=== PATIENT | female | born 1975 | race Two or more races ===

== ENCOUNTER 2016-06-11 08:21 | Outpatient (CLI) ==
[2015-06-18 18:02] VITALS: BMI 39.6
[2016-06-11 09:05] LABS: BASOPHILS # (AUTO) 0.1 K/uL (0-0.2); BASOPHILS % (AUTO) 0.4 % (0.0-3.0); EOSINOPHILS # (AUTO) 0.1 K/ul (0.0-0.7); EOSINOPHILS % (AUTO) 0.9 % (0.0-7.0); HEMATOCRIT 39.5 % (37.0-47.0); HEMOGLOBIN 13.4 g/dl (12.0-16.0); IMMATURE GRANULOCYTE % (AUTO) 0.4 % (0.0-5.0); LYMPHOCYTES # (AUTO) 1.4 K/uL (0.60-3.4); MEAN CORPUSCULAR HEMOGLOBIN 29.2 pg (27.0-31.0); MEAN CORPUSCULAR HGB CONC 33.9 (31.8-35.4); MEAN CORPUSCULAR VOLUME 86.1 fl (81.0-99.0); MONOCYTES # (AUTO) 0.6 K/uL (0.4-2.0); NEUTROPHILS # (AUTO) 10.5 K/ul (2.0-6.9); NEUTROPHILS % (AUTO) 82.3; PLATELET COUNT 279 10^3/uL (140-440); RED BLOOD COUNT 4.59 10^6/ul (4.20-5.40)
--- NOTE | 2016-06-11 09:41 | DI ---
Examination: Two radiographic images of the right hip. Comparison: CT imaging of the abdomen pelvis performed on 06/18/2015. Reason for study: Sacral ileitis. FINDINGS: No acute fracture or dislocation. The joint spaces well maintained. The femoral head ar ticulates with the bony acetabula. No abnormal findings are seen within the right sacroiliac joint or symphysis pubis. Impression: No acute fracture or dislocation in the right hip.
[2016-06-11 09:54] LABS: ANION GAP 17.4; BLOOD UREA NITROGEN 14 mg/dL (7-18); BUN/CREATININE RATIO 16.86; CALCIUM 8.3 mg/dL (8.2-10.2); CARBON DIOXIDE 20 mmol/L (21-32); CHLORIDE 108 mmol/L (98-107); CHOL/HDL RATIO 4.8 (4.5-5.5); CHOLESTEROL 229 mg/dL (0-200); CREATININE 0.83 mg/dL (0.60-1.30); GLUCOSE 116 mg/dL (70-110); HDL CHOLESTEROL 48 mg/dL (35-80); POTASSIUM 4.4 mmol/L (3.5-5.10); SODIUM 141 mmol/L (136-145); TRIGLYCERIDES 102 mg/dL (30-150); VLDL CHOLESTEROL 20 mg/dL (2-30)
--- NOTE | 2016-06-11 10:19 | DI ---
EXAM: Left hip, views, 06/11/2016 HISTORY: Sacroiliitis COMPARISON: 06/18/2015 FINDINGS / IMPRESSION: The left hip aligns normally. Mild chronic osteoarthritic degenerative laird ge. Osteophyte formation at the superior aspect of the acetabulum. The joint space is grossly preserved. No acute osseous abnormality.
== END 2016-06-11 08:22 | disposition home or self-care (01) ==
LOC: LAB 08:21
PROVIDERS: ATTEND Pain Medicine Interventional Pain Medicine
DX: M46.1 Sacroiliitis, not elsewhere classified (principal); E03.9 Hypothyroidism, unspecified; R73.9 Hyperglycemia, unspecified; E78.5 Hyperlipidemia, unspecified
CPT/HCPCS: 36415; 80048; 80061; 83036; 84436; 84443; 85025

== ENCOUNTER 2016-08-02 07:58 | Outpatient (CLI) ==
[2015-06-18 18:02] VITALS: BMI 39.6
--- NOTE | 2016-08-02 09:05 | DI ---
EXAM: Four views of the left knee. History: Left knee pain. Findings: No acute fracture or dislocation. No abnormal calcifications or radiopaque foreign shanda s. Joint spaces are relatively preserved. Impression: Unremarkable exam.
== END 2016-08-02 07:59 | disposition home or self-care (01) ==
LOC: RAD 07:58
PROVIDERS: ATTEND Pain Medicine Interventional Pain Medicine
DX: M17.12 Unilateral primary osteoarthritis, left knee (principal)

== ENCOUNTER 2016-11-09 12:08 | Emergency (ER) ==
[2016-11-09 12:19] VITALS: BP 141/98; TEMP 98; BMI 40.6
--- NOTE | 2016-11-09 12:24 | ED.PDOC ---
General ED Provider: Dr. WILBERTO QUINONES JR Chief Complaint: Weakness Stated Complaint: "i think its my thyroid"--states without meds past month-- unable to see md--did fine first 2 weeks but now has weakness and has had syncopal episodes--states appetite increased--[End]98.0 90 20 95% 141/98 710 pain management for lower back pain-- had fall last pm--states woke up on floor- - headache[End]. Thyroidectomy and gall bladder[End] Time Seen by Physician: 12:23 Mode of Arrival: Walk-In Information Source: Patient Exam Limitations: No limitations Primary Care Provider: CASI SPANGLER Nursing and Triage Documentation Reviewed and Agree: No Review of Systems - Review Of Systems Constitutional: Reports: Malaise, Weakness Eyes: Reports: No symptoms Ears, Nose, Mouth, Throat: Reports: No symptoms Cardiac: Reports: No symptoms GI: Reports: No symptoms : Reports: No symptoms Musculoskeletal: Reports: No symptoms Skin: Reports: No symptoms Neurological: Reports: Headache, Weakness (DIZZINESS) Endocrine: Reports: Unexplained weight gain Hematologic/Lymphatic: Reports: Other All Other Systems: Other Past Medical History - Past Medical History Endocrine: Reports: Hypothyroid, Dyslipidemia, Other (thyroidectomy for cancer at 17 years old) Cardiovascular: Reports: Hypertension Respiratory: Reports: None Hematological: Reports: None Gastrointestinal: Reports: None Genitourinary: Reports: Other (Polycystic Ovarian Disease. ) Neuro/Psych: Reports: None Musculoskeletal: Reports: Arthritis Cancer: Reports: None Last Menstrual Period: today Other Pertinent Past Medical History: psoriasis, POLYCYSTIC OVARIAN - Surgical History General Surgical History: Reports: Cholecystectomy, Other (Throidectomy ) - Family History Family History: Reports: Unknown - Social History Smoking Status: Current some day smoker, Light tobacco smoker Hx Substance Use: No Alcohol Screening: None Physical Exam - Physical Exam Appearance: Well-appearing, Obese Pain Distress: Moderate Eyes: MELVIN, EOMI, Conjunctiva clear ENT: Ears normal, Nose normal, Oropharynx normal Neck: Supple Respiratory: Airway patent, Breath sounds clear, Breath sounds equal, Respirations nonlabored Cardiovascular: RRR, Pulses normal, No rub, No murmur GI/: Soft, Nontender, No masses, Bowel sounds normal, No Organomegaly Musculoskeletal: Normal strength, ROM intact, No edema, No calf tenderness Skin: Warm, Dry, Normal color Neurological: Sensation intact, Motor intact, Reflexes intact, Cranial nerves intact, Alert, Oriented Psychiatric: Affect appropriate, Mood appropriate Critical Care Note - Critical Care Note Total Time (mins): 0 Course - Course Hematology/Chemistry: 11/09/16 12:35 11/09/16 12:35 Orders, Labs, Meds: Lab Review 11/09/16 12:35 WBC 9.90 RBC 4.49 Hgb 12.9 Hct 39.6 MCV 88.2 MCH 28.7 MCHC 32.6 RDW Coeff of Mo 15.7 H Plt Count 259 Immature Gran % (Auto) 0.4 Neut % (Auto) 61.8 Lymph % (Auto) 26.4 [place] % (Auto) 6.5 Eos % (Auto) 4.0 Baso % (Auto) 0.9 Immature Gran # (Auto) 0.0 Neut # 6.1 Lymph # 2.6 [place] # 0.6 Eos # 0.4 Baso # 0.1 Sodium 143 Potassium 3.9 Chloride 105 Carbon Dioxide 25 Anion Gap 16.9 BUN 13 Creatinine 1.08 Estimated GFR (MDRD) 57.00 BUN/Creatinine Ratio 12.03 Glucose 98 Calcium 8.0 L Total Bilirubin 0.23 AST 15 ALT 14 Alkaline Phosphatase 78 Total Protein 6.4 Albumin 3.3 L Globulin 3.1 Albumin/Globulin Ratio 1.06 TSH 45.226 H Orders Category Date Time Status CBC W/ AUTO DIFF Stat LAB 11/09/16 12:35 Completed COMPREHENSIVE METABOLIC PANEL Stat LAB 11/09/16 12:35 Completed THYROID STIMULATING HORMONE Stat LAB 11/09/16 12:[address] HEAD W/O CONTRAST Stat RADS 11/09/16 12:33 Completed Vital Signs: Temp Pulse Resp BP Pulse Ox 11/09/16 12:08 98 F 90 20 141/98 H 95 Departure - Departure Time of Disposition: 13:36 Disposition: HOME SELF-CARE Discharge Problem: Hx of thyroid cancer Hypothyroidism Qualifiers: Hypothyroidism type: other Qualifier Code: (E03.8) Other specified hypothyroidism Instructions: Hypothyroidism (ED) Condition: Fair Pt referred to PMD for follow-up: Yes Additional Instructions: FOLLOW UP FRIDAY SCHEDULED Prescriptions: Levothyroxine Sodium [Synthroid] 325 mcg PO DAILY #30 tablet Allergies/Adverse Reactions: Allergies Pork/Porcine Containing Products Adverse Reaction (Verified 11/09/16 12:16) Home Medications: Ambulatory Orders Gabapentin [Neurontin] 800 mg PO TID 12/22/12 Metformin HCl [Glucophage] 500 mg PO BIDWM 12/22/12 Calcitriol 0.25 mcg PO DAILY 02/09/13 Levothyroxine Sodium [Synthroid] 325 mcg PO QDAC 02/09/13 Metoprolol Tartrate [Lopressor] 50 mg PO DAILY 02/09/13 Diphenhydramine HCl [Benadryl] 2 cap PO PRN PRN 08/11/13 Losartan/Hydrochlorothiazide [Losartan-Hctz 100-12.5 mg Tab] 1 tab PO DAILY 12/18 Atorvastatin Calcium [Lipitor] 10 mg PO BEDTIME 11/09/16 Levothyroxine Sodium [Synthroid] 325 mcg PO DAILY #30 tablet 11/09/16
[2016-11-09 12:40] LABS: BASOPHILS # (AUTO) 0.1 K/uL (0-0.2); BASOPHILS % (AUTO) 0.9 % (0.0-3.0); EOSINOPHILS # (AUTO) 0.4 K/ul (0.0-0.7); HEMATOCRIT 39.6 % (37.0-47.0); HEMOGLOBIN 12.9 g/dl (12.0-16.0); IMMATURE GRANULOCYTE % (AUTO) 0.4 % (0.0-5.0); LYMPHOCYTES # (AUTO) 2.6 K/uL (0.60-3.4); LYMPHOCYTES % (AUTO) 26.4 (10.0-50.0); MEAN CORPUSCULAR HEMOGLOBIN 28.7 pg (27.0-31.0); MEAN CORPUSCULAR HGB CONC 32.6 (31.8-35.4); MEAN CORPUSCULAR VOLUME 88.2 fl (81.0-99.0); MONOCYTES # (AUTO) 0.6 K/uL (0.4-2.0); MONOCYTES % (AUTO) 6.5 (0-10); NEUTROPHILS # (AUTO) 6.1 K/ul (2.0-6.9); NEUTROPHILS % (AUTO) 61.8; PLATELET COUNT 259 10^3/uL (140-440); RED BLOOD COUNT 4.49 10^6/ul (4.20-5.40)
--- NOTE | 2016-11-09 13:03 | CT ---
EXAM: CT of the head without contrast History: Headache and trauma. Comparison: Head CT 03/02/2013 Technique: Multiplanar CT images through the head were obtained without the administration of IV co ntrast Findings: The visualized paranasal sinuses and mastoid air cells are clear in general. No acute ca lvarial abnormalities. Intracranially the ventricular and cisternal spaces are normal in size, shape and configuration for a patient of this age. No dominant mass or midline shift. No hydrocephalous. No acute intracrania l hemorrhage or abnormal extraaxial fluid collections. Impression: No acute intracranial process. No change compared to the prior study.
[2016-11-09 13:17] LABS: ALBUMIN 3.3 g/dL (3.4-5.0); ALBUMIN/GLOBULIN RATIO 1.06; ANION GAP 16.9; BILIRUBIN,TOTAL 0.23 mg/dL (0.00-1.20); BUN/CREATININE RATIO 12.03; CREATININE 1.08 mg/dL (0.60-1.30); POTASSIUM 3.9 mmol/L (3.5-5.10); TOTAL PROTEIN 6.4 g/dL (6.4-8.2)
== END 2016-11-09 13:55 | disposition home or self-care (01) ==
LOC: ED 12:08
DX: E03.8 Other specified hypothyroidism (principal); R53.1 Weakness; R55 Syncope and collapse; Z85.850 Personal history of malignant neoplasm of thyroid; F17.210 Nicotine dependence, cigarettes, uncomplicated; Z79.899 Other long term (current) drug therapy
CPT/HCPCS: 36415; 80053; 84443; 85025; 99283

== ENCOUNTER 2016-12-06 09:48 | Outpatient (CLI) ==
--- NOTE | 2016-12-06 10:54 | CT ---
EXAM: CT Abdomen without contrast. CT Pelvis without contrast. HISTORY: Bilateral flank pain. COMPARISON: 06/18/2015. TECHNIQUE: Multiple axial images of the abdomen and pelvis were obtained without intravenous contra st. Images were reformatted in the coronal plane. FINDINGS: Please note that evaluation of the abdominal and pelvic structures is limited due to lack of intravenous contrast. No acute abnormality identified in the lung bases. Osseous structures are within normal limits for the patient's age. Gallbladder is absent. The liver, pancreas, spleen, and adrenal glands demonstrate normal contour. Low density splenic lesion is unchanged. No calcified renal stones, hydronephrosis or perinephric inflammation identified. The bowel is normal in course and caliber without evidence for obstruction or inflammatory process. The appendix is normal.. Fat-containing supraumbilical hernia noted. There is a tiny fat-containi ng umbilical hernia as well. Uterus demonstrates normal contour. Urinary bladder is not well diste nded. Phleboliths seen in the pelvis. No free fluid or free air identified. Since the prior study, there has been no significant interval change. IMPRESSION: No acute abnormality in the abdomen or pelvis.
== END 2016-12-06 09:49 | disposition home or self-care (01) ==
LOC: RAD 09:48
PROVIDERS: ATTEND Physician Assistant Medical
DX: R10.84 Generalized abdominal pain (principal)

== ENCOUNTER 2017-04-22 15:11 | Emergency (ER) ==
[2017-04-22 15:23] VITALS: BP 113/78; TEMP 101.1; BMI 35.9
--- NOTE | 2017-04-22 15:27 | ED.PDOC ---
General ED Provider: Dr. WILBERTO QUINONES JR Chief Complaint: Nausea/Vomiting Stated Complaint: suddenly developed n/v this am--took zofran--sl better then returned --took phenergan was able to nap--vomiting returned--now has muscle aches--hands numb at times--some palpitations--near-syncope[End]101.1 101 20 95 % 113/78 7/10 feels dizzy--unable to hold down fluids[End] Time Seen by Physician: 15:24 Mode of Arrival: Walk-In Information Source: Patient Exam Limitations: No limitations Primary Care Provider: CASI SPANGLER Nursing and Triage Documentation Reviewed and Agree: No Reviewed sepsis parameters & appropriate labs ordered?: Yes System Inflammatory Response Syndrome: Temp 101F or Greater Sepsis Protocol: For patient's 13 years and over: Temp is 96.8 and below OR 101 and greater Pulse >90 BPM Resp >20/minute Acutely Altered Mental Status Are patient's symptoms suggestive of a new infection, such as: -Pneumonia -Skin, Soft Tissue -Endocarditis -UTI -Bone, Joint Infection -Implantable Device -Acute Abdominal Infection -Wound Infection -Meningitis -Blood Stream Catheter Infection -Unknown System Inflammatory Response Syndrome: Not Applicable Review of Systems - Review Of Systems Constitutional: Reports: Fever, Malaise, Weakness Eyes: Reports: No symptoms Ears, Nose, Mouth, Throat: Reports: No symptoms Respiratory: Reports: No symptoms Cardiac: Reports: Palpitations GI: Reports: Abdominal pain, Nausea, Vomiting : Reports: Flank pain Musculoskeletal: Reports: No symptoms Skin: Reports: No symptoms Neurological: Reports: Numbness, Tingling Endocrine: Reports: No symptoms Hematologic/Lymphatic: Reports: No symptoms All Other Systems: Other Past Medical History - Past Medical History Endocrine: Reports: Hypothyroid, Dyslipidemia, Other (thyroidectomy for cancer at 17 years old) Cardiovascular: Reports: Hypertension Respiratory: Reports: None Hematological: Reports: None Gastrointestinal: Reports: None Genitourinary: Reports: Other (Polycystic Ovarian Disease. ) Neuro/Psych: Reports: None Musculoskeletal: Reports: Arthritis Cancer: Reports: None Last Menstrual Period: 2 weeks ago Other Pertinent Past Medical History: psoriasis - Surgical History General Surgical History: Reports: Cholecystectomy, Other (Throidectomy ) - Family History Family History: Reports: Unknown - Social History Smoking Status: Current every day smoker, Light tobacco smoker Hx Substance Use: No Alcohol Screening: None Physical Exam - Physical Exam Appearance: Ill-appearing, Obese Ill-appearing: Moderate Pain Distress: Moderate Eyes: MELVIN, EOMI, Conjunctiva clear ENT: Ears normal, Nose normal, Oropharynx normal Neck: Supple Respiratory: Airway patent, Breath sounds clear, Breath sounds equal, Respirations nonlabored Cardiovascular: RRR, Pulses normal, No rub, No murmur GI/: Soft, No masses, Bowel sounds normal, Tender Musculoskeletal: Normal strength, ROM intact, No edema, No calf tenderness Skin: Warm, Dry, Normal color Neurological: Sensation intact, Motor intact, Reflexes intact, Cranial nerves intact, Alert, Oriented Psychiatric: Affect appropriate, Mood appropriate Critical Care Note - Critical Care Note Total Time (mins): 20 Course - Course Hematology/Chemistry: 04/22/17 15:43 04/22/17 15:43 Orders, Labs, Meds: Lab Review 04/22/17 04/22/17 04/22/17 15:40 15:43 15:43 WBC 15.74 H RBC 5.24 Hgb 15.4 Hct 46.9 MCV 89.5 MCH 29.4 MCHC 32.8 RDW Coeff of Mo 14.6 Plt Count 292 Immature Gran % (Auto) 0.4 Neut % (Auto) 94.4 Lymph % (Auto) 2.2 L [place] % (Auto) 2.5 Eos % (Auto) 0.3 Baso % (Auto) 0.2 Immature Gran # (Auto) 0.1 Neut # 14.9 H Lymph # 0.3 L [place] # 0.4 Eos # 0.1 Baso # 0.0 Sodium 136 Potassium 5.4 H Chloride 105 Carbon Dioxide 20 L Anion Gap 16.4 BUN 13 Creatinine 1.01 Estimated GFR (MDRD) 61.00 BUN/Creatinine Ratio 12.87 Glucose 126 H Lactic Acid Calcium 7.8 L Total Bilirubin 0.7 AST 16 ALT 14 Alkaline Phosphatase 89 Total Protein 8.8 H Albumin 4.2 Globulin 4.6 Albumin/Globulin Ratio 0.91 Amylase 38 Lipase 17 Procalcitonin Serum , Qual Negative Urine Color Urine Clarity Urine pH Ur Specific [place] Urine Protein Urine Glucose (UA) Urine Ketones Urine Blood Urine Nitrite Urine Bilirubin Urine Urobilinogen Ur Leukocyte Esterase Urine Microscopic WBC Ur Squamous Epith Cells Urine Bacteria Urine Trichomonas H. pylori IgG Antibody Influenza A (Rapid) Influenza B (Rapid) 04/22/17 04/22/17 04/22/17 15:43 15:43 15:43 WBC RBC Hgb Hct MCV MCH MCHC RDW Coeff of Mo Plt Count Immature Gran % (Auto) Neut % (Auto) Lymph % (Auto) [place] % (Auto) Eos % (Auto) Baso % (Auto) Immature Gran # (Auto) Neut # Lymph # [place] # Eos # Baso # Sodium Potassium Chloride Carbon Dioxide Anion Gap BUN Creatinine Estimated GFR (MDRD) BUN/Creatinine Ratio Glucose Lactic Acid 12.1 Calcium Total Bilirubin AST ALT Alkaline Phosphatase Total Protein Albumin Globulin Albumin/Globulin Ratio Amylase Lipase Procalcitonin 0.37 Serum , Qual Urine Color Urine Clarity Urine pH Ur Specific [place] Urine Protein Urine Glucose (UA) Urine Ketones Urine Blood Urine Nitrite Urine Bilirubin Urine Urobilinogen Ur Leukocyte Esterase Urine Microscopic WBC Ur Squamous Epith Cells Urine Bacteria Urine Trichomonas H. pylori IgG Antibody Negative Influenza A (Rapid) Influenza B (Rapid) 04/22/17 04/22/17 15:50 17:05 WBC RBC Hgb Hct MCV MCH MCHC RDW Coeff of Mo Plt Count Immature Gran % (Auto) Neut % (Auto) Lymph % (Auto) [place] % (Auto) Eos % (Auto) Baso % (Auto) Immature Gran # (Auto) Neut # Lymph # [place] # Eos # Baso # Sodium Potassium Chloride Carbon Dioxide Anion Gap BUN Creatinine Estimated GFR (MDRD) BUN/Creatinine Ratio Glucose Lactic Acid Calcium Total Bilirubin AST ALT Alkaline Phosphatase Total Protein Albumin Globulin Albumin/Globulin Ratio Amylase Lipase Procalcitonin Serum , Qual Urine Color Yellow Urine Clarity Slightly Urine pH 7.5 Ur Specific [place] 1.020 Urine Protein 1+ Urine Glucose (UA) Negative Urine Ketones Negative Urine Blood Trace-lysed Urine Nitrite Negative Urine Bilirubin 1+ Urine Urobilinogen 0.2 Ur Leukocyte Esterase 2+ Urine Microscopic WBC 5-10 Ur Squamous Epith Cells 10-20 Urine Bacteria 2+ Urine Trichomonas Moderate H. pylori IgG Antibody Influenza A (Rapid) Negative Influenza B (Rapid) Negative Orders Category Date Time Status ED LABORATORY ANALYST APPLIED .ONCE EMERGENCY 04/22/17 15:28 Active ED IV/MEDIPORT/POWERPORT .ONCE EMERGENCY 04/22/17 15:26 Active ED VITAL SIGNS Q1HR EMERGENCY 04/22/17 15:28 Active AMYLASE Stat LAB 04/22/17 15:43 Completed BLOOD CULTURE (ED ONLY) Stat LAB 04/22/17 15:43 Received CBC W/ AUTO DIFF Stat LAB 04/22/17 15:43 Completed COMPREHENSIVE METABOLIC PANEL Stat LAB 04/22/17 15:43 Completed H. PYLORI SCREEN Stat LAB 04/22/17 15:43 Completed LACTIC ACID Stat LAB 04/22/17 15:43 Completed LIPASE Stat LAB 04/22/17 15:43 Completed MOLECULAR GROUP A STREP Stat LAB 04/22/17 15:50 Results SERUM TEST [SERUM ] Stat LAB 04/22/17 15:40 Completed PROCALCITONIN Stat LAB 04/22/17 15:43 Completed RAPID FLU A/B Stat LAB 04/22/17 15:50 Completed STREP SCREEN Stat LAB 04/22/17 15:50 Results TSH [THYROID STIMULATING HORMONE] Stat LAB 04/22/17 15:40 Received URINALYSIS C & S IF INDICATED Stat LAB 04/22/17 17:05 Completed URINE CULTURE Stat LAB 04/22/17 17:05 Received 0.9 % Sodium Chloride [Saline Flush] MEDS 04/22/17 15:26 Active 1 syr IVF PRN PRN Ketorolac Tromethamine [Toradol] MEDS 04/22/17 16:09 Discontinued 30 mg IVP ONCE STA Morphine Sulfate [Morphine 2 mg/ml Syringe] MEDS 04/22/17 17:05 Discontinued 2 mg IVP ONCE STA Ondansetron HCl/Pf [Zofran 4 mg/2 ml] MEDS 04/22/17 15:44 Discontinued 4 mg IVP ONCE STA Sodium Chloride 0.9% [Sodium Chloride] 1,000 ml MEDS 04/22/17 15:[address] ABDOMEN/PELVIS WO CONTRAST Stat RADS 04/22/17 16:07 Completed Medications Generic Name Dose Route Start Last Admin Trade Name Freq PRN Reason Stop Dose Admin Sodium Chloride 1 syr 04/22/17 15:26 04/22/17 16:10 Saline Flush IVF 1 syr PRN PRN Administration To flush IV Discontinued Medications Generic Name Dose Route Start Last Admin Trade Name Freq PRN Reason Stop Dose Admin Sodium Chloride 1,000 mls @ 1,000 mls/hr 04/22/17 15:44 04/22/17 16:10 Sodium Chloride IV 04/22/17 16:43 1,000 mls/hr BOLUS STA Administration Ketorolac Tromethamine 30 mg 04/22/17 16:09 04/22/17 16:19 Toradol IVP 04/22/17 16:10 30 mg ONCE STA Administration Morphine Sulfate 2 mg 04/22/17 17:05 04/22/17 17:12 Morphine 2 Mg/Ml Syringe IVP 04/22/17 17:06 2 mg ONCE STA Administration Ondansetron HCl 4 mg 04/22/17 15:44 04/22/17 16:10 Zofran 4 Mg/2 Ml IVP 04/22/17 15:45 4 mg ONCE STA Administration Vital Signs: Temp Pulse Resp BP Pulse Ox 04/22/17 15:11 101.1 F H 101 H 20 113/78 95 Departure - Departure Time of Disposition: 17:34 Disposition: HOME SELF-CARE Discharge Problem: Nausea, Vomiting, Trichomonal cystitis and urethritis UTI (urinary tract infection) Qualifiers: Urinary tract infection type: site unspecified Hematuria presence: without hematuria Qualified Code(s): N39.0 - Urinary tract infection, site not specified Instructions: Trichomoniasis (ED), Acute Nausea and Vomiting (ED), Abdominal Pain (ED) Condition: Good Pt referred to PMD for follow-up: Yes Additional Instructions: flagyl for trichomonas macrobid for bacterial infection zofran for nausea phenergan for nausea if zofran not effective return if fever over 101.5 with Tylenol return if not able to keep clear liquids down clear liquids for 8-12 hours after nausea or cvomiting recheck one week PMD recheck urine Prescriptions: Metronidazole [Flagyl] 500 mg PO TID #21 tablet Nitrofurantoin Monohyd/M-Cryst [Macrobid] 100 mg PO BID #14 capsule Ondansetron HCl [Zofran Tab] 4 mg PO QID PRN #12 tablet PRN Reason: Nausea / Vomiting Promethazine HCl [Phenergan Tab] 25 mg PO QID PRN #12 tablet PRN Reason: Nausea / Vomiting Allergies/Adverse Reactions: Allergies Pork/Porcine Containing Products Adverse Reaction (Verified 04/22/17 15:20) Home Medications: Ambulatory Orders Gabapentin [Neurontin] 800 mg PO TID 12/22/12 Metformin HCl [Glucophage] 500 mg PO BIDWM 12/22/12 Calcitriol 0.25 mcg PO DAILY 02/09/13 Metoprolol Tartrate [Lopressor] 50 mg PO DAILY 02/09/13 Diphenhydramine HCl [Benadryl] 2 cap PO PRN PRN 08/11/13 Losartan/Hydrochlorothiazide [Losartan-Hctz 100-12.5 mg Tab] 1 tab PO DAILY 12/18 Atorvastatin Calcium [Lipitor] 10 mg PO BEDTIME 11/09/16 Levothyroxine Sodium [Synthroid] 325 mcg PO DAILY #30 tablet 11/09/16 Metronidazole [Flagyl] 500 mg PO TID #21 tablet 04/22/17 Nitrofurantoin Monohyd/M-Cryst [Macrobid] 100 mg PO BID #14 capsule 04/22/17 Ondansetron HCl [Zofran Tab] 4 mg PO QID PRN #12 tablet 04/22/17 Promethazine HCl [Phenergan Tab] 25 mg PO QID PRN #12 tablet 04/22/17 Sertraline HCl [Zoloft] 100 mg PO BEDTIME 04/22/17
[2017-04-22] MEDS ORDERED: SODIUM CHLORIDE 1,000 ML IV STA (15:44)
[2017-04-22] MEDS ORDERED: ZOFRAN 4 MG/2 ML IVP STA (15:44)
[2017-04-22 16:00] LABS: BASOPHILS % (AUTO) 0.2 % (0.0-3.0); EOSINOPHILS # (AUTO) 0.1 K/ul (0.0-0.7); EOSINOPHILS % (AUTO) 0.3 % (0.0-7.0); HEMATOCRIT 46.9 % (37.0-47.0); HEMOGLOBIN 15.4 g/dl (12.0-16.0); IMMATURE GRANULOCYTE % (AUTO) 0.4 % (0.0-5.0); LYMPHOCYTES # (AUTO) 0.3 K/uL (0.60-3.4); LYMPHOCYTES % (AUTO) 2.2 (10.0-50.0); MEAN CORPUSCULAR HEMOGLOBIN 29.4 pg (27.0-31.0); MEAN CORPUSCULAR HGB CONC 32.8 (31.8-35.4); MEAN CORPUSCULAR VOLUME 89.5 fl (81.0-99.0); MONOCYTES # (AUTO) 0.4 K/uL (0.4-2.0); MONOCYTES % (AUTO) 2.5 (0-10); NEUTROPHILS # (AUTO) 14.9 K/ul (2.0-6.9); NEUTROPHILS % (AUTO) 94.4; PLATELET COUNT 292 10^3/uL (140-440); RED BLOOD COUNT 5.24 10^6/ul (4.20-5.40); WHITE BLOOD COUNT 15.74 K/ul (4.6-10.2)
[2017-04-22 16:07] LABS: H. PYLORI ANTIBODY NEGATIVE (NEGATIVE); H.PYLORI INTERNAL QC INTERNAL QC VALID
[2017-04-22] MEDS ORDERED: TORADOL IVP STA (16:09)
[2017-04-22 16:20] LABS: ALBUMIN 4.2 g/dL (3.4-5.0); ALBUMIN/GLOBULIN RATIO 0.91; ANION GAP 16.4; BILIRUBIN,TOTAL 0.7 mg/dL (0.00-1.20); BUN/CREATININE RATIO 12.87; CALCIUM 7.8 mg/dL (8.2-10.2); CREATININE 1.01 mg/dL (0.60-1.30); POTASSIUM 5.4 mmol/L (3.5-5.10); TOTAL PROTEIN 8.8 g/dL (6.4-8.2)
[2017-04-22 16:33] LABS: FLU INTERNAL QC INTERNAL QC VALID
[2017-04-22 16:34] LABS: SERUM PREGNANCY INTERNAL QC INTERNAL QC VALID
[2017-04-22 16:34] LABS: RAPID FLU A NEGATIVE (NEGATIVE); RAPID FLU B NEGATIVE (NEGATIVE)
[2017-04-22] MEDS ORDERED: MORPHINE 2 MG/ML SYRINGE IVP STA (17:05)
--- NOTE | 2017-04-22 17:12 | CT ---
EXAM: CT of the abdomen and pelvis without contrast. HISTORY: Abdominal pain. PROCEDURE: Contiguous axial CT images of the abdomen and pelvis without contrast with coronal and sa gittal reformats. FINDINGS: The liver is normal in appearance. The gallbladder is surgically absent. The pancreas, sp maddy, adrenal glands and kidneys are normal in appearance. The abdominal aorta is normal in appearan ce. The visualized loops of bowel and appendix are normal in appearance. No free fluid or free air in the abdomen or pelvis. The bladder is minimally filled with no abnormality identified. The uterus is unremarkable. The bones are unremarkable. There is a small umbilical hernia containing only fat. Impression: No acute findings in the abdomen or pelvis. Small umbilical hernia as described. Cholecystectomy.
[2017-04-22 17:13] LABS: BILIRUBIN,URINE 1+ (NEGATIVE); KETONES,URINE Negative (NEGATIVE); LEUKOCYTE ESTERASE ,URINE 2+ (NEGATIVE); NITRITE,URINE Negative (NEGATIVE); PH,URINE 7.5 (5-9); PROTEIN,URINE 1+ (NEGATIVE); URINE, BLOOD Trace-lysed (NEGATIVE)
[2017-04-22 17:31] LABS: ADD URINE MICROSCOPIC YES
[2017-04-22 17:32] LABS: BACTERIA,URINE 2+ (NOT PRESENT)
[2017-04-22 17:33] LABS: TRICHOMONAS,URINE MODERATE (NOT PRESENT)
== END 2017-04-22 18:20 | disposition home or self-care (01) ==
LOC: ED 15:11
DX: A59.03 Trichomonal cystitis and urethritis (principal); R11.2 Nausea with vomiting, unspecified; F17.210 Nicotine dependence, cigarettes, uncomplicated
CPT/HCPCS: 36415; 80053; 81001; 82150; 83605; 83690; 84145; 84443; 84703; 85025; 86677; 87040; 87086; 87651; 87804; 87880; 96361; 96374; 96375; 99283

== ENCOUNTER 2017-06-23 09:55 | Outpatient (CLI) | END 2017-06-23 09:56 | disposition home or self-care (01) | LOC: LAB 09:55 | PROVIDERS: ATTEND Physician Assistant Medical | DX: R73.01 Impaired fasting glucose (principal) | CPT/HCPCS: 36415; 80053; 80061; 83036; 84439; 84443; 85025 ==

== ENCOUNTER 2017-08-18 21:17 | Emergency (ER) ==
[2017-08-18 21:29] VITALS: BP 137/97; TEMP 98.1; BMI 35.2
[2017-08-18] MEDS ORDERED: SODIUM CHLORIDE 1,000 ML IV STA (21:43)
[2017-08-18] MEDS ORDERED: ZOFRAN 4 MG/2 ML IVP STA (21:43)
--- NOTE | 2017-08-18 21:54 | ED.PDOC ---
General ED Provider: Dr. NED MCCOY Chief Complaint: Nausea/Vomiting Stated Complaint: Patient complaints of nause and vomiting x 10 starting yesterday. Today has had 5 eposides. states zofran works but has ran out. Time Seen by Physician: 21:51 Mode of Arrival: Walk-In Information Source: Patient Exam Limitations: No limitations Primary Care Provider: CASI SPANGLER Nursing and Triage Documentation Reviewed and Agree: Yes Reviewed sepsis parameters & appropriate labs ordered?: No System Inflammatory Response Syndrome: Not Applicable Sepsis Protocol: For patient's 13 years and over: Temp is 96.8 and below OR 101 and greater Pulse >90 BPM Resp >20/minute Acutely Altered Mental Status Are patient's symptoms suggestive of a new infection, such as: -Pneumonia -Skin, Soft Tissue -Endocarditis -UTI -Bone, Joint Infection -Implantable Device -Acute Abdominal Infection -Wound Infection -Meningitis -Blood Stream Catheter Infection -Unknown System Inflammatory Response Syndrome: Not Applicable GI Complaint Exam - Vomiting/Diarrhea Complaint/Exam Onset/Duration: 2 days Symptoms Are: Still present Episodes of Vomiting over last 24 Hours: 10 Initial Severity: Moderate Current Severity: Moderate Character of Vomiting: Reports: Non-bilious Aggravating: Reports: Food Alleviating: Reports: NPO, Medications (zofran but has ran out ) Associated Signs and Symptoms: Denies: Dizziness, Light-headedness, Melena, Hematemesis, Fever, Abdominal pain, Cramping Related History: Denies: Similar episode, Recent antibiotics Recent Positive Test: No Use of Oral Contraceptives: No Use of Depoprovera: No Compliant With Contraceptive Use: No Non-GI Risk Factors: Reports: None Surgical Obstruction Risk Factors: Reports: None Related Surgical History: Reports: Cholecystectomy Abdominal Findings: Present: None Differential Diagnoses: Viral Gastroenteritis, UTI Review of Systems - Review Of Systems Constitutional: Reports: Chills, Loss of appetite Eyes: Reports: No symptoms Ears, Nose, Mouth, Throat: Reports: No symptoms. Denies: Throat pain Respiratory: Reports: No symptoms Cardiac: Reports: No symptoms GI: Reports: Abdominal pain (only during vomiting. ), Nausea, Poor appetite, Poor fluid intake, Vomiting : Reports: No symptoms Musculoskeletal: Reports: No symptoms Skin: Reports: No symptoms Neurological: Denies: Headache Endocrine: Reports: No symptoms Hematologic/Lymphatic: Reports: No symptoms All Other Systems: Reviewed and Negative Past Medical History - Past Medical History Endocrine: Reports: Hypothyroid, Dyslipidemia, Other (thyroidectomy for cancer at 17 years old) Cardiovascular: Reports: Hypertension Respiratory: Reports: None Hematological: Reports: None Gastrointestinal: Reports: None Genitourinary: Reports: Other (Polycystic Ovarian Disease. ) Neuro/Psych: Reports: None Musculoskeletal: Reports: Arthritis Cancer: Reports: None Last Menstrual Period: 418 Other Pertinent Past Medical History: psoriasis - Surgical History General Surgical History: Reports: Cholecystectomy, Other (Throidectomy ) - Family History Family History: Reports: Unknown - Social History Smoking Status: Current every day smoker, Light tobacco smoker Hx Substance Use: No Alcohol Screening: None - Immunizations Tetanus Shot up to Date: Yes Physical Exam - Physical Exam Appearance: Ill-appearing, Obese Ill-appearing: Moderate Pain Distress: Mild Neck: Supple Respiratory: Airway patent, Breath sounds clear, Breath sounds equal, Respirations nonlabored Cardiovascular: RRR, Pulses normal, No rub, No murmur GI/: Soft, Nontender, No masses, Bowel sounds normal, No Organomegaly Musculoskeletal: Normal strength, ROM intact, No edema, No calf tenderness Skin: Warm, Dry, Normal color Neurological: Alert, Oriented Psychiatric: Anxious Critical Care Note - Critical Care Note Total Time (mins): 0 Course - Course Hematology/Chemistry: 08/18/17 21:55 08/18/17 21:55 Orders, Labs, Meds: Lab Review 08/18/17 08/18/17 08/18/17 21:33 21:55 21:55 WBC 4.78 RBC 3.77 L Hgb 11.1 L Hct 33.5 L MCV 88.9 MCH 29.4 MCHC 33.1 RDW Coeff of Mo 14.7 Plt Count 219 Immature Gran % (Auto) 0.2 Neut % (Auto) 69.9 Lymph % (Auto) 17.4 [place] % (Auto) 8.8 Eos % (Auto) 3.1 Baso % (Auto) 0.6 Immature Gran # (Auto) 0.0 Neut # (Auto) 3.3 Lymph # (Auto) 0.8 [place] # (Auto) 0.4 Eos # (Auto) 0.2 Baso # (Auto) 0.0 Sodium 141 Potassium 3.7 Chloride 107 Carbon Dioxide 20 L Anion Gap 17.7 BUN 8 Creatinine 0.67 Estimated GFR (MDRD) 98.00 BUN/Creatinine Ratio 11.94 Glucose 94 Calcium 6.9 L Total Bilirubin 0.3 AST 23 ALT 19 Alkaline Phosphatase 69 Total Protein 6.3 L Albumin 3.1 L Globulin 3.2 Albumin/Globulin Ratio 0.97 Amylase 19 L Lipase 11 Serum , Qual Urine Color Yellow Urine Clarity Slightly Urine pH 5.5 Ur Specific [place] >=1.030 Urine Protein 1+ Urine Glucose (UA) Negative Urine Ketones Trace Urine Blood 2+ Urine Nitrite Negative Urine Bilirubin 1+ Urine Urobilinogen 1.0 Ur Leukocyte Esterase Negative Urine Microscopic RBC 5-10 Urine Microscopic WBC 0-2 Ur Squamous Epith Cells 10-20 Urine Bacteria Trace Urine Mucus Trace 08/18/17 21:55 WBC RBC Hgb Hct MCV MCH MCHC RDW Coeff of Mo Plt Count Immature Gran % (Auto) Neut % (Auto) Lymph % (Auto) [place] % (Auto) Eos % (Auto) Baso % (Auto) Immature Gran # (Auto) Neut # (Auto) Lymph # (Auto) [place] # (Auto) Eos # (Auto) Baso # (Auto) Sodium Potassium Chloride Carbon Dioxide Anion Gap BUN Creatinine Estimated GFR (MDRD) BUN/Creatinine Ratio Glucose Calcium Total Bilirubin AST ALT Alkaline Phosphatase Total Protein Albumin Globulin Albumin/Globulin Ratio Amylase Lipase Serum , Qual Negative Urine Color Urine Clarity Urine pH Ur Specific [place] Urine Protein Urine Glucose (UA) Urine Ketones Urine Blood Urine Nitrite Urine Bilirubin Urine Urobilinogen Ur Leukocyte Esterase Urine Microscopic RBC Urine Microscopic WBC Ur Squamous Epith Cells Urine Bacteria Urine Mucus Orders Category Date Time Status ED IV/MEDIPORT/POWERPORT .ONCE EMERGENCY 08/18/17 21:43 Active AMYLASE Stat LAB 08/18/17 21:55 Completed CBC W/ AUTO DIFF Stat LAB 08/18/17 21:55 Completed COMPREHENSIVE METABOLIC PANEL Stat LAB 08/18/17 21:55 Completed HCG QUALITATIVE [SERUM ] Stat LAB 08/18/17 21:55 Completed LIPASE Stat LAB 08/18/17 21:55 Completed URINALYSIS C & S IF INDICATED Stat LAB 08/18/17 21:33 Completed 0.9 % Sodium Chloride [Saline Flush] MEDS 08/18/17 21:43 Ordered 1 syr IVF PRN PRN Ondansetron HCl/Pf [Zofran 4 mg/2 ml] MEDS 08/18/17 21:43 Discontinued 4 mg IVP ONCE STA Sodium Chloride 0.9% [Sodium Chloride] 1,000 ml MEDS 08/18/17 21:43 Discontinued IV BOLUS Medications Generic Name Dose Route Start Last Admin Trade Name Freq PRN Reason Stop Dose Admin Sodium Chloride 1 syr 08/18/17 21:43 Saline Flush IVF PRN PRN To flush IV Discontinued Medications Generic Name Dose Route Start Last Admin Trade Name Freq PRN Reason Stop Dose Admin Sodium Chloride 1,000 mls @ 1,000 mls/hr 08/18/17 21:43 08/18/17 22:04 Sodium Chloride IV 08/18/17 22:42 1,000 mls/hr BOLUS STA Administration Ondansetron HCl 4 mg 08/18/17 21:43 08/18/17 22:04 Zofran 4 Mg/2 Ml IVP 08/18/17 21:44 4 mg ONCE STA Administration Vital Signs: Temp Pulse Resp BP Pulse Ox 08/18/17 21:19 98.1 F 82 20 137/97 H 96 Departure - Departure Time of Disposition: 23:30 Disposition: HOME SELF-CARE Discharge Problem: Gastroenteritis Instructions: Gastroenteritis (ED) Condition: Stable Pt referred to PMD for follow-up: Yes IPMP verified?: No Additional Instructions: continue to push fluids Take zofran as needed Follow up with PCP in 3-5 days Prescriptions: Ondansetron HCl [Zofran Tab] 4 mg PO Q8H PRN #14 tablet PRN Reason: Nausea / Vomiting Allergies/Adverse Reactions: Allergies Pork/Porcine Containing Products Adverse Reaction (Verified 08/18/17 21:25) Home Medications: Ambulatory Orders Gabapentin [Neurontin] 800 mg PO TID 12/22/12 Metformin HCl [Glucophage] 500 mg PO BIDWM 12/22/12 Metoprolol Tartrate [Lopressor] 50 mg PO DAILY 02/09/13 Diphenhydramine HCl [Benadryl] 2 cap PO PRN PRN 08/11/13 Losartan/Hydrochlorothiazide [Losartan-Hctz 100-12.5 mg Tab] 1 tab PO DAILY 12/18 Atorvastatin Calcium [Lipitor] 10 mg PO BEDTIME 11/09/16 Levothyroxine Sodium [Synthroid] 325 mcg PO DAILY #30 tablet 11/09/16 Sertraline HCl [Zoloft] 100 mg PO BEDTIME 04/22/17 Ondansetron HCl [Zofran Tab] 4 mg PO Q8H PRN #14 tablet 08/18/17 Disposition Discussed With: Patient
== END 2017-08-18 23:40 | disposition home or self-care (01) ==
LOC: ED 21:17
DX: K52.9 Noninfective gastroenteritis and colitis, unspecified (principal); I10 Essential (primary) hypertension; E78.5 Hyperlipidemia, unspecified; E03.9 Hypothyroidism, unspecified; F17.210 Nicotine dependence, cigarettes, uncomplicated; Z79.899 Other long term (current) drug therapy
CPT/HCPCS: 36415; 80053; 81001; 82150; 83690; 84703; 85025; 96360; 99284

== ENCOUNTER 2017-09-02 08:30 | Outpatient (CLI) | END 2017-09-02 08:31 | disposition home or self-care (01) | LOC: LAB 08:30 | PROVIDERS: ATTEND Physician Assistant Medical | DX: E78.2 Mixed hyperlipidemia (principal); E01.8 Other iodine-deficiency related thyroid disorders and allied conditions; M25.50 Pain in unspecified joint | CPT/HCPCS: 36415; 80053; 80061; 84439; 84443; 85025; 85651; 86038; 86430 ==

== ENCOUNTER 2017-10-21 13:14 | Outpatient (CLI) | END 2017-10-21 13:15 | disposition home or self-care (01) | LOC: LAB 13:14 | PROVIDERS: ATTEND Nurse Practitioner | DX: L40.0 Psoriasis vulgaris (principal); Z79.899 Other long term (current) drug therapy | CPT/HCPCS: 36415; 80053; 85025; 85027 ==

== ENCOUNTER 2017-12-25 21:27 | Emergency (ER) ==
[2017-12-25 21:34] VITALS: BP 151/98; TEMP 98.4; BMI 36.1
[2017-12-25] MEDS ORDERED: LACTATED RINGERS 1,000 ML IV STA (21:38)
--- NOTE | 2017-12-25 21:42 | ED.PDOC ---
General ED Provider: Dr. NED MCCOY Chief Complaint: Stated Complaint: Patient is a 42 year old who is 8 weeks who comes to the ER with complains of Abdominal cramping without vaginal bleed. Has recenlty been to her obgyn doctor last week. Took Percocet prior to arrival since Tylenol did not help. Recently completed Macrobid for UTI Time Seen by Physician: 21:40 Mode of Arrival: Walk-In Information Source: Patient Exam Limitations: No limitations Primary Care Provider: CASI SPANGLER Nursing and Triage Documentation Reviewed and Agree: Yes Does patient meet sepsis criteria?: No System Inflammatory Response Syndrome: Not Applicable Sepsis Protocol: For patient's 13 years and over: Temp is 96.8 and below OR 101 and greater Pulse >90 BPM Resp >20/minute Acutely Altered Mental Status Are patient's symptoms suggestive of a new infection, such as: -Pneumonia -Skin, Soft Tissue -Endocarditis -UTI -Bone, Joint Infection -Implantable Device -Acute Abdominal Infection -Wound Infection -Meningitis -Blood Stream Catheter Infection -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 Complaint/Exam Expected Date of Delivery: 08/01/18 Review of Systems - Review Of Systems Constitutional: Reports: No symptoms Eyes: Reports: No symptoms Ears, Nose, Mouth, Throat: Reports: No symptoms Respiratory: Reports: No symptoms Cardiac: Reports: No symptoms GI: Reports: No symptoms : Reports: No symptoms Musculoskeletal: Reports: No symptoms Skin: Reports: No symptoms Neurological: Reports: No symptoms Endocrine: Reports: No symptoms Hematologic/Lymphatic: Reports: No symptoms All Other Systems: Reviewed and Negative Past Medical History - Past Medical History Endocrine: Reports: Hypothyroid, Dyslipidemia, Other (thyroidectomy for cancer at 17 years old) Cardiovascular: Reports: Hypertension Respiratory: Reports: None Hematological: Reports: None Gastrointestinal: Reports: None Genitourinary: Reports: Other (Polycystic Ovarian Disease. ) Neuro/Psych: Reports: None Musculoskeletal: Reports: Arthritis Cancer: Reports: None Last Menstrual Period: 10/30/17 Other Pertinent Past Medical History: psoriasis - Surgical History General Surgical History: Reports: Cholecystectomy, Other (Throidectomy ) - Family History Family History: Reports: Unknown - Social History Smoking Status: Current every day smoker, Light tobacco smoker Hx Substance Use: No Alcohol Screening: None - Immunizations Tetanus Shot up to Date: No (unsure) Physical Exam - Physical Exam Appearance: Ill-appearing Ill-appearing: Moderate Pain Distress: Severe Neck: Supple Respiratory: Airway patent, Breath sounds clear, Breath sounds equal, Respirations nonlabored Cardiovascular: RRR, Pulses normal, No rub, No murmur GI/: Soft, Tender Musculoskeletal: Normal strength, ROM intact, No edema, No calf tenderness Skin: Warm, Dry, Normal color Neurological: Sensation intact, Motor intact, Cranial nerves intact, Alert, Oriented Psychiatric: Affect appropriate, Anxious Critical Care Note - Critical Care Note Total Time (mins): 0 Course - Course Hematology/Chemistry: 12/25/17 21:51 12/25/17 21:51 Orders, Labs, Meds: Lab Review 12/25/17 12/25/17 12/25/17 21:51 21:51 22:01 WBC 11.55 H RBC 4.09 L Hgb 12.0 Hct 35.9 L MCV 87.8 MCH 29.3 MCHC 33.4 RDW Coeff of Mo 14.9 H Plt Count 229 Immature Gran % (Auto) 0.4 Neut % (Auto) 69.9 Lymph % (Auto) 20.6 [place] % (Auto) 6.4 Eos % (Auto) 2.1 Baso % (Auto) 0.6 Immature Gran # (Auto) 0.1 Neut # (Auto) 8.1 H Lymph # (Auto) 2.4 [place] # (Auto) 0.7 Eos # (Auto) 0.2 Baso # (Auto) 0.1 Sodium 138 Potassium 4.0 Chloride 107 Carbon Dioxide 21 Anion Gap 14.0 BUN 12 Creatinine 0.71 Estimated GFR (MDRD) 91.00 BUN/Creatinine Ratio 16.90 Glucose 85 Calcium 9.0 Total Bilirubin 0.2 AST 11 L ALT 10 L Alkaline Phosphatase 68 Total Protein 7.2 Albumin 3.6 Globulin 3.6 Albumin/Globulin Ratio 1.00 Urine Color Yellow Urine Clarity Clear Urine pH 6.0 Ur Specific [place] 1.025 Urine Protein Negative Urine Glucose (UA) Negative Urine Ketones Negative Urine Blood Trace-lysed Urine Nitrite Negative Urine Bilirubin Negative Urine Urobilinogen 0.2 Ur Leukocyte Esterase Trace Urine Microscopic RBC 2-5 Urine Microscopic WBC 10-20 Ur Squamous Epith Cells 2-5 Urine Bacteria Trace Urine Mucus 1+ Urine Sperm 1+ Orders Category Date Time Status ED IV/MEDIPORT/POWERPORT .ONCE EMERGENCY 12/25/17 21:38 Active CBC W/ AUTO DIFF Stat LAB 12/25/17 21:51 Completed COMPREHENSIVE METABOLIC PANEL Stat LAB 12/25/17 21:51 Completed URINALYSIS C & S IF INDICATED Stat LAB 12/25/17 22:01 Completed URINE CULTURE Stat LAB 12/25/17 22:01 Received 0.9 % Sodium Chloride [Saline Flush] MEDS 12/25/17 21:38 Ordered 1 syr IVF PRN PRN Ringers Lactated Solution [Lactated Ringers] 1,000 ml MEDS 12/25/17 21:38 Discontinued IV BOLUS Sodium Chloride 0.9% [Sodium Chloride] 1,000 ml MEDS 12/25/17 22:40 Active IV BOLUS Medications Generic Name Dose Route Start Last Admin Trade Name Freq PRN Reason Stop Dose Admin Sodium Chloride 1,000 mls @ 1,000 mls/hr 12/25/17 22:40 12/25/17 22:47 Sodium Chloride IV 12/25/17 23:39 1,000 mls/hr BOLUS STA Administration Sodium Chloride 1 syr 12/25/17 21:38 Saline Flush IVF PRN PRN To flush IV Discontinued Medications Generic Name Dose Route Start Last Admin Trade Name Freq PRN Reason Stop Dose Admin Lactated Ringer's 1,000 mls @ 1,000 mls/hr 12/25/17 21:38 12/25/17 21:59 Lactated Ringers IV 12/25/17 22:37 1,000 mls/hr BOLUS STA Administration Vital Signs: Temp Pulse Resp BP Pulse Ox 12/25/17 21:27 98.4 F 81 20 151/98 H 98 Departure - Departure Time of Disposition: 23:30 Disposition: HOME SELF-CARE Discharge Problem: Uterine cramping Instructions: at 7 to 10 Weeks (ED) Condition: Stable Pt referred to PMD for follow-up: Yes IPMP verified?: No Additional Instructions: Take Tylenol as needed for pain Push fluids Follow up with OBGYN in 2-3 days Allergies/Adverse Reactions: Allergies Pork/Porcine Containing Products Adverse Reaction (Verified 08/18/17 21:25) Home Medications: Ambulatory Orders Levothyroxine Sodium [Synthroid] 275 mcg PO DAILY 12/25/17 Vit Calc,Iron,Folic [ Vitamins] 1 tab PO DAILY 12/25/17 RX: Folic Acid 0.8 mg PO BID 12/25/17 Disposition Discussed With: Patient, Family
[2017-12-25] MEDS ORDERED: SODIUM CHLORIDE 1,000 ML IV STA (22:40)
== END 2017-12-25 23:38 | disposition home or self-care (01) ==
LOC: ED 21:27
DX: N94.89 Other specified conditions associated with female genital organs and menstrual cycle (principal); Z33.1 Pregnant state, incidental; I10 Essential (primary) hypertension; E78.5 Hyperlipidemia, unspecified; E89.0 Postprocedural hypothyroidism; E28.2 Polycystic ovarian syndrome; Z79.899 Other long term (current) drug therapy; Z85.850 Personal history of malignant neoplasm of thyroid; Z90.89 Acquired absence of other organs; F17.210 Nicotine dependence, cigarettes, uncomplicated
CPT/HCPCS: 36415; 80053; 81001; 85025; 87086; 96360; 96361; 99283

== ENCOUNTER 2018-03-20 15:25 | Emergency (ER) ==
[2018-03-20 15:28] VITALS: BP 124/78; TEMP 96.8; BMI 39.3
--- NOTE | 2018-03-20 15:38 | ED.PDOC ---
General ED Provider: Dr. CINDI GRACE Chief Complaint: Headache Stated Complaint: HEADACHE Time Seen by Physician: 15:30 (SEE N WITH keysha) Mode of Arrival: Walk-In Information Source: Patient Exam Limitations: No limitations Primary Care Provider: CASI SPANGLER Nursing and Triage Documentation Reviewed and Agree: Yes Does patient meet sepsis criteria?: No System Inflammatory Response Syndrome: Not Applicable Sepsis Protocol: For patient's 13 years and over: Temp is 96.8 and below OR 101 and greater Pulse >90 BPM Resp >20/minute Acutely Altered Mental Status Are patient's symptoms suggestive of a new infection, such as: -Pneumonia -Skin, Soft Tissue -Endocarditis -UTI -Bone, Joint Infection -Implantable Device -Acute Abdominal Infection -Wound Infection -Meningitis -Blood Stream Catheter Infection -Unknown Neurological Complaint Exam - Headache Complaint/Exam Onset: Gradual Duration: 20 week gestation has headache no trauma Symptoms Are: Still present Timing: Intermittent Episodes Lasting: Days Worst Headache Ever: No Initial Severity: Moderate Current Severity: Moderate Location: Diffuse Character: Reports: Dull Aggravating: Reports: None Alleviating: Reports: None Associated Signs and Symptoms: Denies: Dizziness, Seizure, Nausea, Vomiting, Sinus pressure, Fever, Neck pain, Neck stiffness, Decreased LOC, Visual changes Related History: Reports: Similar episode Related Surgical History: Reports: None SAH Risk Factors: Reports: Hypertension Meningitis Risk Factors: Reports: None SDH Risk Factors: Reports: None Temporal Arteritis Risk Factors: Reports: Female, Normal Head CT Within Last 12 Months: No Fundoscopic Exam: Present: Normal Findings Papilledema Present: No Temporal Artery Tenderness: Present: None Sinus Tenderness: Present: None TMJ Tenderness: Present: None Glascow Coma Scale (see protocol): 15 Meningeal Signs Positive: No Pain on Passive Flexion-Positive Kernig's: No ROM Limited In: No Limitiations Focal Weakness: Present: None Focal Sensory Loss: Present: None Gait: Normal Nystagmus Present: No Gag Reflex Present: Yes [id number]: Normal Findings Differential Diagnoses: Migraine Review of Systems - Review Of Systems Constitutional: Reports: No symptoms Eyes: Reports: No symptoms Ears, Nose, Mouth, Throat: Reports: No symptoms Respiratory: Reports: No symptoms Cardiac: Reports: No symptoms GI: Reports: No symptoms : Reports: No symptoms Musculoskeletal: Reports: No symptoms Skin: Reports: No symptoms Neurological: Reports: Headache Endocrine: Reports: No symptoms Hematologic/Lymphatic: Reports: No symptoms All Other Systems: Reviewed and Negative Past Medical History - Past Medical History Previously Healthy: Yes Endocrine: Reports: Hypothyroid, Dyslipidemia, Other (thyroidectomy for cancer at 17 years old) Cardiovascular: Reports: Hypertension Respiratory: Reports: None Hematological: Reports: None Gastrointestinal: Reports: None Genitourinary: Reports: Other (Polycystic Ovarian Disease. ) Neuro/Psych: Reports: None Musculoskeletal: Reports: Arthritis Cancer: Reports: None Last Menstrual Period: N/A Other Pertinent Past Medical History: psoriasis - Surgical History General Surgical History: Reports: Cholecystectomy, Other (Throidectomy ) - Family History Family History: Reports: Unknown - Social History Smoking Status: Current every day smoker, Light tobacco smoker Hx Substance Use: No Alcohol Screening: None Physical Exam - Physical Exam Appearance: Well-appearing, No pain distress, Well-nourished Eyes: MELVIN, EOMI, Conjunctiva clear ENT: Ears normal, Nose normal, Oropharynx normal Respiratory: Airway patent, Breath sounds clear, Breath sounds equal, Respirations nonlabored Cardiovascular: RRR, Pulses normal, No rub, No murmur GI/: Soft, Nontender, No masses, Bowel sounds normal, No Organomegaly Musculoskeletal: Normal strength, ROM intact, No edema, No calf tenderness Skin: Warm, Dry, Normal color Neurological: Sensation intact, Motor intact, Reflexes intact, Cranial nerves intact, Alert, Oriented Psychiatric: Affect appropriate, Mood appropriate - NIH Stroke Scale 1a. Level of Consciousness: 0=Alert and keenly responsive 1b. Level of Consciousness Questions: 0=Answers correctly to two questions 1c. Level of Consciousness Commands: 0=Performs two tasks correctly 2. Best Gaze: 0=Normal 3. Visual: 0=No visual loss 4. Facial Palsy: 0=Normal 5a. Motor Left Arm: 0=No drift,arm holds 90 degrees for 10 sec., leg 30 degrees for 5 sec. 5b. Motor Right Arm: 0=No drift,arm holds 90 degrees for 10 sec., leg 30 degrees for 5 sec. 6a. Motor Left Le=No drift,arm holds 90 degrees for 10 sec., leg 30 degrees for 5 sec. 6b. Motor Right Le=No drift,arm holds 90 degrees for 10 sec., leg 30 degrees for 5 sec. 7. Limb Ataxia: 0=Absent 8. Sensory: 0=Normal 10. Dysarthria: 0=Normal 11. Extincion and Inattention: 0=Normal Stroke Scale Total: 0 Critical Care Note - Critical Care Note Total Time (mins): 0 Course - Course Vital Signs: Temp Pulse Resp BP Pulse Ox 03/20/18 15:25 96.8 F L 109 H 16 124/78 98 Departure - Departure Time of Disposition: 15:40 Disposition: HOME SELF-CARE Discharge Problem: Headache Qualifiers: Headache type: unspecified Intractability: not intractable Instructions: Acute Headache (ED), Acute Headache (DC) Condition: Good Pt referred to PMD for follow-up: Yes IPMP verified?: No Additional Instructions: Please call your Family Physician as soon as possible to schedule a follow-up appointment. Allergies/Adverse Reactions: Allergies Pork/Porcine Containing Products Adverse Reaction (Verified 03/20/18 15:28) Home Medications: Ambulatory Orders Folic Acid 0.8 mg PO BID 12/25/17 Levothyroxine Sodium [Synthroid] 275 mcg PO DAILY 12/25/17 Vit Calc,Iron,Folic [ Vitamins] 1 tab PO DAILY 12/25/17
== END 2018-03-20 15:50 | disposition home or self-care (01) ==
LOC: ED 15:25
DX: R51 Headache (principal); I10 Essential (primary) hypertension; E03.9 Hypothyroidism, unspecified; E78.5 Hyperlipidemia, unspecified; F17.210 Nicotine dependence, cigarettes, uncomplicated
CPT/HCPCS: 99282

== ENCOUNTER 2018-05-18 08:24 | Outpatient (CLI) | END 2018-05-18 08:25 | disposition home or self-care (01) | LOC: LAB 08:24 | PROVIDERS: ATTEND Internal Medicine Endocrinology, Diabetes & Metabolism | DX: Z85.850 Personal history of malignant neoplasm of thyroid (principal) | CPT/HCPCS: 36415; 84439; 84443 ==

== ENCOUNTER 2018-08-22 13:51 | Emergency (ER) ==
[2018-08-22 14:01] VITALS: BP 116/88; TEMP 98.4; BMI 41.5
[2018-08-22] MEDS ORDERED: LIDOCAINE HCL 1% SDV SUBCUT STA (14:42)
[2018-08-22] MEDS ORDERED: TORADOL IM STA (14:43)
--- NOTE | 2018-08-22 14:58 | CT ---
EXAM: CT scan of the left knee without contrast CLINICAL HISTORY: Pain, no obvious injury TECHNIQUE: Helical imaging of the left knee was performed without contrast. 2 mm thin axial images and coronal and sagittal reconstructions were provided for interpretation. Comparison none. FINDINGS: The distal femur, tibia plateau appear intact. There does appear to be a small to moderat e sized suprapatellar joint effusion. The patella appears intact. There is mild loss of joint space seen within the medial compartment of the left knee. IMPRESSION: No acute fractures are seen within the left knee. Mild arthritis of the medial compartment of the left knee. Small to moderate-sized suprapatellar joint effusion.
--- NOTE | 2018-08-22 15:05 | ED.PDOC ---
General ED Provider: Dr. CINDI GRACE Chief Complaint: Extremity Pain/Injury Stated Complaint: left knee pain no injury Time Seen by Physician: 14:00 Mode of Arrival: Walk-In Information Source: Patient Exam Limitations: No limitations Primary Care Provider: CJ WASSERMAN Nursing and Triage Documentation Reviewed and Agree: Yes Does patient meet sepsis criteria?: No System Inflammatory Response Syndrome: Not Applicable Sepsis Protocol: For patient's 13 years and over: Temp is 96.8 and below OR 101 and greater Pulse >90 BPM Resp >20/minute Acutely Altered Mental Status Are patient's symptoms suggestive of a new infection, such as: -Pneumonia -Skin, Soft Tissue -Endocarditis -UTI -Bone, Joint Infection -Implantable Device -Acute Abdominal Infection -Wound Infection -Meningitis -Blood Stream Catheter Infection -Unknown Musculoskeletal Complaint Exam - Knee Pain Complaint/Exam Mechanism of Injury: Reports: No known trauma Onset/Duration: 1 week Symptoms Are: Still present Onset of Pain: Reports: Days Initial Severity: Moderate Current Severity: Moderate Location: Reports: Discrete Character: Reports: Aching Alleviating: Reports: Rest, Position Aggravating: Reports: Movement, Weight bearing, Prolonged standing Associated Signs and Symptoms: Reports: Swelling Able to Bear Weight: Yes Related History: Reports: Similar episode Gout Risk Factors: Reports: None Knee Findings: Present: Swelling, Tenderness (knee). Absent: Ecchymosis, Abnormal contour, Rotation, Ligamentous instability, Laceration, Erythema, Warmth, Blisters, Other joint pain, Foreign body Payam Test Positive: No Juan Test Positive: No Differential Diagnoses: Closed Fracture Review of Systems - Review Of Systems Constitutional: Reports: No symptoms Eyes: Reports: No symptoms Ears, Nose, Mouth, Throat: Reports: No symptoms Respiratory: Reports: No symptoms Cardiac: Reports: No symptoms GI: Reports: No symptoms : Reports: No symptoms Musculoskeletal: Reports: No symptoms Skin: Reports: No symptoms Neurological: Reports: No symptoms Endocrine: Reports: No symptoms Hematologic/Lymphatic: Reports: No symptoms All Other Systems: Reviewed and Negative Past Medical History - Past Medical History Previously Healthy: Yes Endocrine: Reports: Hypothyroid, Dyslipidemia, Other (thyroidectomy for cancer at 17 years old) Cardiovascular: Reports: Hypertension Respiratory: Reports: None Hematological: Reports: None Gastrointestinal: Reports: None Genitourinary: Reports: Other (Polycystic Ovarian Disease. ) Neuro/Psych: Reports: None Musculoskeletal: Reports: Arthritis Cancer: Reports: None Last Menstrual Period: 10/2017 Other Pertinent Past Medical History: psoriasis - Surgical History General Surgical History: Reports: Cholecystectomy, Other (Throidectomy ) - Family History Family History: Reports: Unknown - Social History Smoking Status: Current some day smoker Hx Substance Use: No Alcohol Screening: None - Immunizations Tetanus Shot up to Date: Yes Physical Exam - Physical Exam Appearance: Well-appearing, No pain distress, Well-nourished Eyes: MELVIN, EOMI, Conjunctiva clear ENT: Ears normal, Nose normal, Oropharynx normal Respiratory: Airway patent, Breath sounds clear, Breath sounds equal, Respirations nonlabored Cardiovascular: RRR, Pulses normal, No rub, No murmur GI/: Soft, Nontender, No masses, Bowel sounds normal, No Organomegaly Musculoskeletal: ROM intact, No calf tenderness, Edema (left knee) Skin: Warm, Dry, Normal color Neurological: Sensation intact, Motor intact, Reflexes intact, Cranial nerves intact, Alert, Oriented Psychiatric: Affect appropriate, Mood appropriate Interpretation - Radiology Interpretation Radiology Interpretation By: Radiologist Radiology Results: Positive (joint effusion) Critical Care Note - Critical Care Note Total Time (mins): 0 Course - Course Orders, Labs, Meds: Orders Category Date Time Status Ketorolac Tromethamine [Toradol] MEDS 08/22/18 14:43 Discontinued 60 mg IM ONCE STA CT KNEE LEFT WITHOUT CONTRAST Stat RADS 08/22/18 14:32 Completed Medications Discontinued Medications Generic Name Dose Route Start Last Admin Trade Name Freq PRN Reason Stop Dose Admin Ketorolac Tromethamine 60 mg 08/22/18 14:43 Toradol IM 08/22/18 14:44 ONCE STA Vital Signs: Temp Pulse Resp BP Pulse Ox 08/22/18 13:52 98.4 F 94 H 16 116/88 97 Departure - Departure Time of Disposition: 15:05 Disposition: HOME SELF-CARE Discharge Problem: Knee effusion, left Instructions: Swollen Knee Joint (ED) Condition: Good Pt referred to PMD for follow-up: Yes IPMP verified?: No Additional Instructions: Please call your Family Physician as soon as possible to schedule a follow-up appointment.you have fluid in your knee joint. it is possible that there may be something torn in your as i have shown you with nicolle present with a knee model the soft tissue injury of the knee is missed on typical x ray , or even cat sacn of the knee. discuss m.r.i with your md Allergies/Adverse Reactions: Allergies Pork/Porcine Containing Products Adverse Reaction (Verified 08/22/18 14:05) Home Medications: Ambulatory Orders Folic Acid 0.2 mg PO BID 12/25/17 Levothyroxine Sodium [Synthroid] 250 mcg PO DAILY 12/25/17 Vit Calc,Iron,Folic [ Vitamins] 1 tab PO DAILY 12/25/17
== END 2018-08-22 15:23 | disposition home or self-care (01) ==
LOC: ED 13:51
DX: M25.562 Pain in left knee (principal); M25.462 Effusion, left knee; F17.210 Nicotine dependence, cigarettes, uncomplicated
CPT/HCPCS: 96372; 99283

== ENCOUNTER 2018-08-27 11:08 | Outpatient (CLI) | END 2018-08-27 11:09 | disposition home or self-care (01) | LOC: LAB 11:08 | PROVIDERS: ATTEND Physician Assistant | DX: E83.51 Hypocalcemia (principal) | CPT/HCPCS: 36415; 80053; 83970 ==

== ENCOUNTER 2018-09-09 19:36 | Emergency (ER) ==
[2018-09-09 19:38] VITALS: TEMP 98.3; BMI 43.2
[2018-09-09] MEDS ORDERED: SOLU-MEDROL 125 MG IM STA (20:06)
[2018-09-09] MEDS ORDERED: CLARITIN PO STA (20:06)
[2018-09-09] MEDS ORDERED: ZANTAC PO STA (20:07)
--- NOTE | 2018-09-09 20:12 | ED.PDOC ---
General ED Provider: Dr. NED MCCOY Chief Complaint: Knee Pain/Injury Stated Complaint: fell on to some bushes injuring left knee then started developing a diffuse urticarial rash that is very itchy. Denies any shortness of breath. Time Seen by Physician: 20:11 Mode of Arrival: Wheelchair Information Source: Patient Exam Limitations: No limitations Primary Care Provider: CJ WASSERMAN Nursing and Triage Documentation Reviewed and Agree: Yes Does patient meet sepsis criteria?: No System Inflammatory Response Syndrome: Not Applicable Sepsis Protocol: For patient's 13 years and over: Temp is 96.8 and below OR 101 and greater Pulse >90 BPM Resp >20/minute Acutely Altered Mental Status Are patient's symptoms suggestive of a new infection, such as: -Pneumonia -Skin, Soft Tissue -Endocarditis -UTI -Bone, Joint Infection -Implantable Device -Acute Abdominal Infection -Wound Infection -Meningitis -Blood Stream Catheter Infection -Unknown Musculoskeletal Complaint Exam - Knee Pain Complaint/Exam Mechanism of Injury: Reports: Trauma Onset/Duration: today Symptoms Are: Still present Onset of Pain: Reports: Immediate, Post accident Location: Reports: Diffuse Character: Reports: Aching, Throbbing Alleviating: Reports: None Aggravating: Reports: Movement, Weight bearing Able to Bear Weight: Yes Related History: Reports: Similar episode Septic Arthritis Risk Factors: Reports: None Knee Findings: Present: Swelling Tenderness: Present: Joint Payam Test Positive: No Juan Test Positive: No Differential Diagnoses: Sprain, Strain Review of Systems - Review Of Systems Constitutional: Reports: No symptoms Ears, Nose, Mouth, Throat: Reports: No symptoms Respiratory: Reports: Short of air Cardiac: Reports: Lightheadedness GI: Reports: No symptoms : Reports: No symptoms Musculoskeletal: Reports: No symptoms Skin: Reports: Rash (diffuse rash on the abdomen and upper extremities ) Neurological: Reports: Anxiety Endocrine: Reports: No symptoms All Other Systems: Reviewed and Negative Past Medical History - Past Medical History Previously Healthy: Yes Endocrine: Reports: Hypothyroid, Dyslipidemia, Other (thyroidectomy for cancer at 17 years old) Cardiovascular: Reports: Hypertension Respiratory: Reports: None Hematological: Reports: None Gastrointestinal: Reports: None Genitourinary: Reports: Other (Polycystic Ovarian Disease. ) Neuro/Psych: Reports: None Musculoskeletal: Reports: Arthritis, Joint Pain Cancer: Reports: None Last Menstrual Period: 2 weeks Other Pertinent Past Medical History: psoriasis - Surgical History General Surgical History: Reports: Cholecystectomy, Other (Throidectomy ) - Family History Family History: Reports: Unknown - Social History Smoking Status: Current some day smoker, Light tobacco smoker Hx Substance Use: No Alcohol Screening: None - Immunizations Tetanus Shot up to Date: Yes Physical Exam - Physical Exam Appearance: Obese Ill-appearing: Moderate Pain Distress: Severe Eyes: MELVIN, EOMI ENT: Ears normal, Nose normal, Oropharynx normal Neck: Supple (no stridor) Respiratory: Breath sounds diminished Cardiovascular: RRR, Pulses normal, No rub, No murmur GI/: Soft, Nontender, No masses, Bowel sounds normal, No Organomegaly Musculoskeletal: Normal strength, ROM intact, No edema, No calf tenderness Skin: Warm, Dry Neurological: Sensation intact, Motor intact, Reflexes intact, Cranial nerves intact, Alert, Oriented Psychiatric: Anxious Interpretation - Radiology Interpretation Radiology Interpretation By: Radiologist Radiology Results: Negative Exam Interpreted: Other (left knee) Re-Evaluation - Re-Evaluation Time of Re-Evaluation: 00:06 (rash improved ) Status: Improved Vital Signs Stable: Yes (104/71) Skin: Other (Rash improved) Critical Care Note - Critical Care Note Total Time (mins): 45 Course - Course Hematology/Chemistry: 09/09/18 22:14 09/09/18 22:14 Orders, Labs, Meds: Lab Review 09/09/18 09/09/18 22:14 22:14 WBC 17.50 H RBC 5.18 Hgb 14.8 Hct 45.3 MCV 87.5 MCH 28.6 MCHC 32.7 RDW Coeff of Mo 14.2 Plt Count 466 H Immature Gran % (Auto) 0.6 Neut % (Auto) 79.7 Lymph % (Auto) 14.0 [place] % (Auto) 4.2 Eos % (Auto) 1.2 Baso % (Auto) 0.3 Immature Gran # (Auto) 0.1 Neut # (Auto) 13.9 H Lymph # (Auto) 2.5 [place] # (Auto) 0.7 Eos # (Auto) 0.2 Baso # (Auto) 0.1 Sodium 139.5 Potassium 3.10 L Chloride 105.9 Carbon Dioxide 20.4 L Anion Gap 16.30 BUN 15.3 Creatinine 1.33 H Estimated GFR (MDRD) 44.00 BUN/Creatinine Ratio 11.50 Glucose 143.9 H Calcium 6.38 L Total Bilirubin 0.31 AST 26.2 ALT 18.4 Alkaline Phosphatase 74.5 Total Creatine Kinase 155.0 H CK-MB (CK-2) 1.020 CK-MB (CK-2) % 0.6500 Total Protein 6.29 L Albumin 3.91 Globulin 2.38 Albumin/Globulin Ratio 1.64 Orders Category Date Time Status ABG DRAW REQUEST Stat CARDIO 09/09/18 21:34 Ordered EKG-(ED ONLY) Stat CARDIO 09/09/18 21:33 Completed NEBULIZER TREATMENT Stat CARDIO 09/09/18 21:26 Completed ED IV/MEDIPORT/POWERPORT .ONCE EMERGENCY 09/09/18 21:33 Active ABG Stat LAB 09/09/18 21:34 Ordered CBC W/ AUTO DIFF Stat LAB 09/09/18 22:14 Completed COMPREHENSIVE METABOLIC PANEL Stat LAB 09/09/18 22:14 Completed CREATINE KINASE Stat LAB 09/09/18 22:14 Completed 0.9 % Sodium Chloride [Saline Flush] MEDS 09/09/18 21:33 Discontinued 1 syr IVF PRN PRN Diphenhydramine Inj [Benadryl] MEDS 09/09/18 20:21 Discontinued 50 mg IM ONCE STA Epinephrine Amp [Epinephrine 1 mg/ml Amp] MEDS 09/09/18 21:25 Discontinued 0.4 mg IM ONCE STA Epinephrine Amp [Epinephrine 1 mg/ml Amp] MEDS 09/09/18 21:27 Discontinued 1 mg .ROUTE .STK-MED ONE Loratadine [Claritin] MEDS 09/09/18 20:06 Discontinued 10 mg PO ONCE STA Methylprednisolone Sod Succ/Pf [Solu-Medrol 125 mg] MEDS 09/09/18 20:06 Discontinued 125 mg IM ONCE STA Ondansetron HCl/Pf [Zofran 4 mg/2 ml] MEDS 09/09/18 21:33 Discontinued 4 mg IVP ONCE STA Ondansetron HCl/Pf [Zofran 4 mg/2 ml] MEDS 09/09/18 21:58 Discontinued 4 mg IVP ONCE STA Racepinephrine Neb [Racepinephrine 2.25%] MEDS 09/09/18 21:26 Discontinued 1 vial NEB ONCE STA Ranitidine HCl [Zantac] MEDS 09/09/18 20:07 Discontinued 300 mg PO ONCE STA KNEE, LEFT 4 VIEWS Stat RADS 09/09/18 20:21 Completed Medications Discontinued Medications Generic Name Dose Route Start Last Admin Trade Name Frenicholas PRN Reason Stop Dose Admin Diphenhydramine HCl 50 mg 09/09/18 20:21 09/09/18 20:39 Benadryl IM 09/09/18 20:22 50 mg ONCE STA Administration Epinephrine 1 vial 09/09/18 21:26 09/09/18 21:30 Racepinephrine 2.25% NEB 09/09/18 21:27 1 vial ONCE STA Administration Epinephrine HCl 0.4 mg 09/09/18 21:25 09/09/18 21:38 Epinephrine 1 Mg/Ml Amp IM 09/09/18 21:26 0.4 mg ONCE STA Administration Loratadine 10 mg 09/09/18 20:06 09/09/18 20:16 Claritin PO 09/09/18 20:07 10 mg ONCE STA Administration Methylprednisolone Sodium Succinate 125 mg 09/09/18 20:06 09/09/18 20:17 Solu-Medrol 125 Mg IM 09/09/18 20:07 125 mg ONCE STA Administration Ondansetron HCl 4 mg 09/09/18 21:33 09/09/18 21:47 Zofran 4 Mg/2 Ml IVP 09/09/18 21:34 4 mg ONCE STA Administration Ondansetron HCl 4 mg 09/09/18 21:58 09/09/18 22:21 Zofran 4 Mg/2 Ml IVP 09/09/18 21:59 4 mg ONCE STA Administration Ranitidine HCl 300 mg 09/09/18 20:07 09/09/18 20:16 Zantac PO 09/09/18 20:08 300 mg ONCE STA Administration Sodium Chloride 1 syr 09/09/18 21:33 Saline Flush IVF PRN PRN To flush IV Vital Signs: Temp Pulse Resp BP Pulse Ox 09/09/18 23:15 102/57 L 09/09/18 22:57 96/63 09/09/18 19:36 98.3 F 103 H 20 128/76 97 Departure - Departure Time of Disposition: 23:20 Disposition: HOME SELF-CARE Discharge Problem: Injury of knee, Anaphylactic shock Instructions: Urticaria (ED), Anaphylaxis (ED) Condition: Stable Pt referred to PMD for follow-up: Yes IPMP verified?: No Additional Instructions: Push fluids continue Benadryl \ take steroids as prescribed Prescriptions: Prednisone 20 mg PO DAILYWM #5 tablet Allergies/Adverse Reactions: Allergies Pork/Porcine Containing Products Adverse Reaction (Verified 08/22/18 14:05) Home Medications: Ambulatory Orders Folic Acid 0.2 mg PO BID 12/25/17 Levothyroxine Sodium [Synthroid] 250 mcg PO DAILY 12/25/17 Prednisone 20 mg PO DAILYWM #5 tablet 09/10/18 Disposition Discussed With: Patient, Family
[2018-09-09] MEDS ORDERED: BENADRYL IM STA (20:21)
--- NOTE | 2018-09-09 20:50 | DI ---
EXAM: Four view left knee. HISTORY: Injury with pain and swelling. FINDINGS: The bones are intact with no evidence of fracture. The joint spaces are maintained. No so ft tissue abnormality. Impression: Negative left knee.
[2018-09-09] MEDS ORDERED: EPINEPHRINE 1 MG/ML AMP IM STA (21:25)
[2018-09-09] MEDS ORDERED: RACEPINEPHRINE 2.25% NEB STA (21:26)
[2018-09-09] MEDS ORDERED: EPINEPHRINE 1 MG/ML AMP ONE (21:27)
[2018-09-09] MEDS ORDERED: ZOFRAN 4 MG/2 ML IVP STA ×2 (21:33→21:58)
[2018-09-09 23:27] VITALS: BP 102/57
== END 2018-09-10 00:20 | disposition home or self-care (01) ==
LOC: ED 19:36
DX: S89.92XA Unspecified injury of left lower leg, initial encounter (principal); T78.2XXA Anaphylactic shock, unspecified, initial encounter; L50.0 Allergic urticaria; R06.02 Shortness of breath; F17.210 Nicotine dependence, cigarettes, uncomplicated
CPT/HCPCS: 36415; 80053; 82550; 82553; 85025; 93005; 93010; 94640; 96361; 96372; 96374; 96375; 96376; 99284

== ENCOUNTER 2018-09-14 10:40 | Outpatient (CLI) | END 2018-09-14 10:41 | disposition home or self-care (01) | LOC: LAB 10:40 | PROVIDERS: ATTEND Dermatology | DX: L40.8 Other psoriasis (principal); Z79.899 Other long term (current) drug therapy; E03.9 Hypothyroidism, unspecified | CPT/HCPCS: 36415; 80053; 84443 ==

== ENCOUNTER 2018-09-23 22:34 | Emergency (ER) ==
[2018-09-23 22:47] VITALS: TEMP 99; BMI 43.1
--- NOTE | 2018-09-23 23:21 | ED.PDOC ---
General ED Provider: Dr. JOSE ANGEL VIGIL Chief Complaint: Abnormal Labs Stated Complaint: paatient complains for weaknes and low calcium levels. Time Seen by Physician: 22:50 Mode of Arrival: Walk-In Information Source: Patient Primary Care Provider: CJ WASSERMAN Nursing and Triage Documentation Reviewed and Agree: Yes Does patient meet sepsis criteria?: No System Inflammatory Response Syndrome: Not Applicable Sepsis Protocol: For patient's 13 years and over: Temp is 96.8 and below OR 101 and greater Pulse >90 BPM Resp >20/minute Acutely Altered Mental Status Are patient's symptoms suggestive of a new infection, such as: -Pneumonia -Skin, Soft Tissue -Endocarditis -UTI -Bone, Joint Infection -Implantable Device -Acute Abdominal Infection -Wound Infection -Meningitis -Blood Stream Catheter Infection -Unknown Endocrine Complaint Exam - Diabetic Complication Complaint/Exam Onset/Duration: chronic Symptoms Are: Still present Timing: Intermittent Initial Severity: Mild Current Severity: Mild Character: Alert Aggravating: Reports: Diet change Alleviating: Reports: None Related History: Reports: Similar episode Cardiac Risk Factors: Reports: Hypertension CVA Risk Factors: Reports: Hypertension Serious Bacterial Infection Risk Factors: Reports: None Related Surgical History: Reports: None Acetone on Breath: No Dry Mucous Membranes: No Kussmaul Respirations: No Meningeal Signs: No Focal Weakness: None Focal Sensory Loss: None Gait: Normal Nystagmus Present: No Gag Reflex Present: No Finger to Nose: Normal Romberg Test Positive: No Heel to Toe Normal: Yes Differential Diagnoses: Hypoglycemia, Seizure, Other Review of Systems - Review Of Systems Constitutional: Reports: No symptoms Eyes: Reports: No symptoms Ears, Nose, Mouth, Throat: Reports: No symptoms Respiratory: Reports: No symptoms Cardiac: Reports: No symptoms GI: Reports: No symptoms : Reports: No symptoms Musculoskeletal: Reports: No symptoms Skin: Reports: No symptoms Neurological: Reports: No symptoms Endocrine: Reports: No symptoms Hematologic/Lymphatic: Reports: No symptoms All Other Systems: Reviewed and Negative Past Medical History - Past Medical History Previously Healthy: Yes Endocrine: Reports: Hypothyroid, Dyslipidemia, Other (thyroidectomy for cancer at 17 years old) Cardiovascular: Reports: Hypertension Respiratory: Reports: None Hematological: Reports: None Gastrointestinal: Reports: None Genitourinary: Reports: Other (Polycystic Ovarian Disease. ) Neuro/Psych: Reports: None Musculoskeletal: Reports: Arthritis, Joint Pain Cancer: Reports: None Last Menstrual Period: 28 days ago Other Pertinent Past Medical History: psoriasis - Surgical History General Surgical History: Reports: Cholecystectomy, Other (Throidectomy ) - Family History Family History: Reports: Unknown - Social History Smoking Status: Current some day smoker, Light tobacco smoker Hx Substance Use: No Alcohol Screening: None - Immunizations Tetanus Shot up to Date: Yes Physical Exam - Physical Exam Appearance: Well-appearing Ill-appearing: None Eyes: MELVIN, EOMI, Conjunctiva clear ENT: Ears normal, Nose normal, Oropharynx normal Neck: Supple Respiratory: Airway patent, Breath sounds clear, Breath sounds equal Cardiovascular: RRR, Pulses normal, No rub GI/: Soft, Mass Musculoskeletal: Normal strength, ROM intact, No edema Skin: Warm, Dry Neurological: Sensation intact, Alert, Oriented Psychiatric: Affect appropriate Critical Care Note - Critical Care Note Total Time (mins): 0 Course - Course Orders, Labs, Meds: Orders Category Date Time Status COMPREHENSIVE METABOLIC PANEL Stat LAB 09/23/18 23:28 Ordered Calcium Gluconate Inj [Calcium Gluconate 10%] 1,000 mg MEDS 09/23/18 23:26 Active 0.9 % Sodium Chloride [Sodium Chloride] 100 ml IV ONCE Medications Generic Name Dose Route Start Last Admin Trade Name Freq PRN Reason Stop Dose Admin Calcium Gluconate 1,000 mg/ 110 mls @ 50 mls/hr 09/23/18 23:26 Sodium Chloride IV 09/24/18 01:37 ONCE STA Vital Signs: Temp Pulse Resp BP Pulse Ox 09/23/18 22:39 99 F 100 H 22 163/113 H 96 Departure - Departure Time of Disposition: 23:39 Disposition: HOME SELF-CARE Discharge Problem: Hypocalcemia Instructions: Hypocalcemia (ED) Condition: Good Pt referred to PMD for follow-up: Yes (follow with PCP) IPMP verified?: No Allergies/Adverse Reactions: Allergies lamotrigine [From Lamictal] Adverse Reaction (Verified 09/23/18 22:47) Pork/Porcine Containing Products Adverse Reaction (Verified 09/23/18 22:47) Anaphylaxis Home Medications: Ambulatory Orders Folic Acid 0.2 mg PO BID 12/25/17 Levothyroxine Sodium [Synthroid] 250 mcg PO DAILY 12/25/17 Prednisone 20 mg PO DAILYWM #5 tablet 09/10/18 Disposition Discussed With: Patient, Family
[2018-09-23] MEDS ORDERED: CALCIUM GLUCONATE 10% 1,000 MG in SODIUM CHLORIDE 100 ML IV STA (23:26)
[2018-09-23] MEDS ORDERED: CALCIUM GLUCONATE 10% ONE (23:49)
[2018-09-24 03:07] VITALS: BP 152/88
== END 2018-09-24 01:59 | disposition home or self-care (01) ==
LOC: ED 22:34
DX: E83.51 Hypocalcemia (principal); R53.1 Weakness; I10 Essential (primary) hypertension; E78.5 Hyperlipidemia, unspecified; E89.0 Postprocedural hypothyroidism; F17.210 Nicotine dependence, cigarettes, uncomplicated; Z79.899 Other long term (current) drug therapy
CPT/HCPCS: 36415; 80053; 96365; 96366; 99282

== ENCOUNTER 2018-10-11 22:16 | Emergency (ER) ==
[2018-10-11 22:21] VITALS: BP 143/85; TEMP 99.9; BMI 43.3
--- NOTE | 2018-10-11 22:33 | ED.PDOC ---
General ED Provider: Dr. MARIA A DENNISON-ER Chief Complaint: Rash Stated Complaint: claudia had this rash for about a day and it really itches Time Seen by Physician: 22:20 Mode of Arrival: Walk-In Information Source: Patient, Family Exam Limitations: No limitations Primary Care Provider: CJ WASSERMAN Nursing and Triage Documentation Reviewed and Agree: Yes Does patient meet sepsis criteria?: No System Inflammatory Response Syndrome: Not Applicable Sepsis Protocol: For patient's 13 years and over: Temp is 96.8 and below OR 101 and greater Pulse >90 BPM Resp >20/minute Acutely Altered Mental Status Are patient's symptoms suggestive of a new infection, such as: -Pneumonia -Skin, Soft Tissue -Endocarditis -UTI -Bone, Joint Infection -Implantable Device -Acute Abdominal Infection -Wound Infection -Meningitis -Blood Stream Catheter Infection -Unknown Skin Complaint Exam - Skin Rash/Itching Complaint/Exam Onset/Duration: 24hrs Symptoms Are: Still present Initial Severity: Mild Current Severity: Moderate Location: back, trunk and arms Aggravating: Reports: None Alleviating: Reports: None Associated Signs and Symptoms: Denies: Difficulty breathing, Fever, Chills Skin Findings: Present: Urticaria Differential Diagnoses: Allergic Reaction, Urticaria Review of Systems - Review Of Systems Constitutional: Reports: No symptoms Eyes: Reports: No symptoms Ears, Nose, Mouth, Throat: Reports: No symptoms Respiratory: Reports: No symptoms Cardiac: Reports: No symptoms GI: Reports: No symptoms : Reports: No symptoms Musculoskeletal: Reports: No symptoms Skin: Reports: No symptoms Neurological: Reports: No symptoms Endocrine: Reports: No symptoms Hematologic/Lymphatic: Reports: No symptoms All Other Systems: Reviewed and Negative Past Medical History - Past Medical History Previously Healthy: Yes Endocrine: Reports: Hypothyroid, Dyslipidemia, Other (thyroidectomy for cancer at 17 years old) Cardiovascular: Reports: Hypertension Respiratory: Reports: None Hematological: Reports: None Gastrointestinal: Reports: None Genitourinary: Reports: Other (Polycystic Ovarian Disease. ) Neuro/Psych: Reports: None Musculoskeletal: Reports: Arthritis, Joint Pain Cancer: Reports: None Last Menstrual Period: 2 weeks Other Pertinent Past Medical History: psoriasis - Surgical History General Surgical History: Reports: Cholecystectomy, Other (Throidectomy ) - Family History Family History: Reports: Unknown - Social History Smoking Status: Current some day smoker, Light tobacco smoker Hx Substance Use: No Alcohol Screening: None - Immunizations Tetanus Shot up to Date: Yes Physical Exam - Physical Exam Appearance: Well-appearing Eyes: MELVIN ENT: Ears normal, Nose normal, Oropharynx normal Neck: Supple Respiratory: Airway patent, Breath sounds clear, Breath sounds equal, Respirations nonlabored Cardiovascular: RRR, Pulses normal, No rub, No murmur GI/: Soft, Nontender, No masses, Bowel sounds normal, No Organomegaly Musculoskeletal: Normal strength, ROM intact, No edema, No calf tenderness Skin: Warm, Dry, Normal color Neurological: Sensation intact, Motor intact, Reflexes intact, Cranial nerves intact, Alert, Oriented Psychiatric: Affect appropriate, Mood appropriate Critical Care Note - Critical Care Note Total Time (mins): 0 Course - Course Orders, Labs, Meds: Orders Category Date Time Status Dexamethasone 4 mg/ml Inj [Decadron 4 mg/ml Sdv] MEDS 10/11/18 22:29 Discontinued 8 mg IM ONCE STA Hydroxyzine HCl [Vistaril Inj] MEDS 10/11/18 22:29 Discontinued 50 mg IM ONCE STA Ranitidine HCl [Zantac] MEDS 10/11/18 22:30 Discontinued 300 mg PO ONCE STA Medications Discontinued Medications Generic Name Dose Route Start Last Admin Trade Name Freq PRN Reason Stop Dose Admin Dexamethasone Sodium Phosphate 8 mg 10/11/18 22:29 10/11/18 22:41 Decadron 4 Mg/Ml Sdv IM 10/11/18 22:30 8 mg ONCE STA Administration Hydroxyzine HCl 50 mg 10/11/18 22:29 10/11/18 22:41 Vistaril Inj IM 10/11/18 22:30 50 mg ONCE STA Administration Ranitidine HCl 300 mg 10/11/18 22:30 10/11/18 22:40 Zantac PO 10/11/18 22:31 300 mg ONCE STA Administration Vital Signs: Temp Pulse Resp BP Pulse Ox 10/11/18 22:17 99.9 F H 95 H 22 143/85 H 93 L Departure - Departure Time of Disposition: 23:33 Disposition: HOME SELF-CARE Discharge Problem: Pruritic rash Instructions: Urticaria (ED) Condition: Good Pt referred to PMD for follow-up: Yes IPMP verified?: No Additional Instructions: prednisone 40mg x 2 days then 20mg x 2 days then 10mg x 2 days, zyrtec 10mg daily #14---zantac 150mg bid #30---stay in cool environment Allergies/Adverse Reactions: Allergies lamotrigine [From Lamictal] Adverse Reaction (Verified 10/11/18 22:22) Pork/Porcine Containing Products Adverse Reaction (Verified 10/11/18 22:22) Anaphylaxis Home Medications: Ambulatory Orders Levothyroxine Sodium [Synthroid] 250 mcg PO DAILY 12/25/17 Apremilast [Otezla] 30 mg PO TID 10/11/18 Calcium Carbonate [Calcium] 500 mg PO TID 10/11/18 Gabapentin [Neurontin] 800 mg PO TID 10/11/18 Olanzapine [Zyprexa] 2.5 mg PO DAILY 10/11/18 Sertraline HCl [Zoloft] 100 mg PO DAILY 10/11/18 Disposition Discussed With: Patient, Family
[2018-10-11] MEDS: ZANTAC PO STA (22:40)
[2018-10-11] MEDS: VISTARIL INJ IM STA (22:41)
[2018-10-11] MEDS: DECADRON 4 MG/ML SDV IM STA (22:41)
== END 2018-10-11 23:41 | disposition home or self-care (01) ==
LOC: ED 22:16
DX: R21 Rash and other nonspecific skin eruption (principal); L29.9 Pruritus, unspecified; F17.210 Nicotine dependence, cigarettes, uncomplicated
CPT/HCPCS: 96372; 99282